=== PATIENT | female | born 1970 | race Caucasian/White ===

== ENCOUNTER 2023-03-20 20:14 | Emergency (ER) | payer MEDICAID, OTHER ==
[~2023-03-20] VITALS: Ht 162.6 cm; Wt 59.0 kg
[2023-03-20 20:40] VITALS: O2SAT 98
[2023-03-21] MEDS ORDERED: KETOROLAC 30MG/ML VIAL IV STA (00:39)
[2023-03-21] MEDS ORDERED: VANCOMYCIN 1G PREMIX 200 ML IV SCH (00:45)
[2023-03-21] MEDS ORDERED: SODIUM CHLORIDE 0.9% 1,000 ML IV ONE (00:45)
[2023-03-21 01:12] LABS: BASOPHILS % 0.7 % (0.0-2.0); EOSINOPHILS % 2.5 % (0.0-5.0); HEMATOCRIT. 29.2 % (36.0-48.0); HEMOGLOBIN. 9.8 g/dL (12.0-16.0); LYMPHOCYTES % 28.3 % (20.0-50.0); MEAN CORPUSCULAR HGB CONC 33.8 g/dL (31.0-37.0); MEAN CORPUSCULAR VOLUME 97.9 fL (81.0-99.0); MEAN PLATELET VOLUME 8.3 fl (7.4-10.4); MONOCYTES % 7.4 % (2.0-8.0); NEUTROPHILS % 61.1 % (40.0-76.0); PLATELET 216 x1000/uL (130-400); RED BLOOD CELL COUNT 2.98 mill/uL (4.2-5.4); WHITE BLOOD COUNT 6.7 x1000/uL (4.5-11.0)
[2023-03-21 01:27] LABS: ALANINE AMINOTRANSFERASE 10 IU/L (10-49); ALBUMIN 3.7 g/dL (3.2-4.8); ASPARTATE AMINOTRANSFERASE 15 IU/L (<34); BILIRUBIN TOTAL 0.3 mg/dL (0.1-1.0); CALCIUM 8.7 mg/dL (8.7-10.4); CARBON DIOXIDE 24 mEq/L (21-32); CHLORIDE 108 mEq/L (98-107); CREATININE 0.5 mg/dL (0.6-1.0); GLUCOSE 151 mg/dL (70-105); POTASSIUM 3.7 mEq/L (3.5-5.1); SODIUM 140 mEq/L (136-145); UREA NITROGEN BLOOD 10 mg/dL (9-23)
[2023-03-21] MEDS ORDERED: VANCOMYCIN 1G PREMIX 200 ML IV NR (03:15)
[2023-03-21] MEDS ORDERED: KETOROLAC 30MG/ML VIAL IV NR (03:15)
[2023-03-21 03:47] LABS: CLARITY URINE CLEAR (CLEAR); COLOR URINE YELLOW (YELLOW); GLUCOSE URINE NEGATIVE (NEGATIVE); KETONES URINE NEGATIVE (NEGATIVE); LEUKOCYTE ESTERASE URINE TRACE (NEGATIVE); NITRITE URINE NEGATIVE (NEGATIVE); OCCULT BLOOD URINE NEGATIVE (NEGATIVE); PH URINE 6.5 (4.5-8.0); PROTEIN URINE 1+ (NEGATIVE); SPECIFIC GRAVITY URINE 1.025 (1.005-1.030)
[2023-03-21 04:19] LABS: BACTERIA URINE NONE SEEN; RBC URINE 0-2 /hpf (0-2); SQUAMOUS EPITHELIAL CELL URINE FEW /lpf (RARE/1+); WBC URINE 0-2 /hpf (0-2)
[2023-03-21 09:13] VITALS: BP 135/79; PULSE 70; RESP 16; TEMP 98.7
== END 2023-03-21 09:17 | disposition short-term general hospital (02) ==
LOC: ER 20:14 → CANBEDREQ 03-21 08:55 → ER 03-21 09:17
DX: L03.115 Cellulitis of right lower limb (principal); E11.9 Type 2 diabetes mellitus without complications; Z98.890 Other specified postprocedural states
CPT/HCPCS: 99285; 73630; 96365; 71045; 96375; 80053; 81003; 81025; 85025; 87040; 87086; 36415; J1885; J3370; J7030; 96366